=== PATIENT | female | born 1935 | race African-American/Black ===

== ENCOUNTER 2021-09-22 11:09 | Inpatient (IN) | payer BC, OTHER ==
[~2021-09-22] VITALS: Ht 167.6 cm; Wt 79.0 kg
[2021-09-22 12:29] LABS: BASOPHILS % 0.6 % (0.0-2.0); EOSINOPHILS % 0.1 % (0.0-5.0); HEMATOCRIT. 46.8 % (36.0-48.0); HEMOGLOBIN. 15.6 g/dL (12.0-16.0); LYMPHOCYTES % 23.1 % (20.0-50.0); MEAN CORPUSCULAR HEMOGLOBIN 28.8 pg (28.0-32.0); MEAN CORPUSCULAR VOLUME 86.2 fL (81.0-99.0); MEAN PLATELET VOLUME 8.8 fl (7.4-10.4); MONOCYTES % 9.2 % (2.0-8.0); PLATELET 246 x1000/uL (130-400); RED BLOOD CELL COUNT 5.43 mill/uL (4.2-5.4); RED CELL DISTRIBUTION WIDTH 13.4 % (11.6-14.6)
[2021-09-22 12:36] LABS: CHLORIDE 98 mEq/L (98-107)
[2021-09-22 12:57] LABS: CLARITY URINE CLOUDY (CLEAR); COLOR URINE YELLOW (YELLOW); KETONES URINE TRACE (NEGATIVE); LEUKOCYTE ESTERASE URINE NEGATIVE (NEGATIVE); NITRITE URINE NEGATIVE (NEGATIVE); OCCULT BLOOD URINE NEGATIVE (NEGATIVE); PROTEIN URINE 3+ (NEGATIVE); SPECIFIC GRAVITY URINE 1.026 (1.005-1.030)
[2021-09-22] MEDS ORDERED: SODIUM CHLORIDE 0.9% 500 ML IV ONE (13:30)
[2021-09-22] MEDS ORDERED: ONDANSETRON HCL 4MG/2ML INJ IV PRN (22:15)
[2021-09-22] MEDS ORDERED: DIPHENHYDRAMINE 50MG/ML VIAL IV PRN (22:15)
[2021-09-22] MEDS ORDERED: ACETAMINOPHEN 325MG TABLET PO PRN ×2 (22:15)
[2021-09-22] MEDS ORDERED: DEXTROSE 50% WATER 50ML SYRINGE IV PRN (22:15)
[2021-09-22] MEDS: SODIUM CHLORIDE 0.9% 1,000 ML IV SCH (22:35)
[2021-09-23 04:38] LABS: BASOPHILS % 0.8 % (0.0-2.0); HEMATOCRIT. 42.9 % (36.0-48.0); HEMOGLOBIN. 14.3 g/dL (12.0-16.0); LYMPHOCYTES % 16.2 % (20.0-50.0); MEAN CORPUSCULAR HEMOGLOBIN 28.8 pg (28.0-32.0); MEAN CORPUSCULAR VOLUME 86.5 fL (81.0-99.0); MEAN PLATELET VOLUME 8.5 fl (7.4-10.4); MONOCYTES % 11.2 % (2.0-8.0); NEUTROPHILS % 71.8 % (40.0-76.0); PLATELET 210 x1000/uL (130-400); RED BLOOD CELL COUNT 4.96 mill/uL (4.2-5.4); RED CELL DISTRIBUTION WIDTH 13.3 % (11.6-14.6)
[2021-09-23 05:05] LABS: CHLORIDE 107 mEq/L (98-107)
[2021-09-23] MEDS: BLOOD SUGAR DIAGNOSTIC STRIP TEST SCH ×4 (06:30→21:50)
[2021-09-23] MEDS: INSULIN LISPRO 100 UNITS/ML SUBCUT SCH ×4 (07:00→21:00)
[2021-09-23] MEDS: ENOXAPARIN 40MG/0.4ML SYR SUBCUT SCH (09:00)
[2021-09-23] MEDS: SODIUM CHLORIDE 0.9% 1,000 ML IV SCH (12:47)
[2021-09-24] MEDS: SODIUM CHLORIDE 0.9% 1,000 ML IV SCH ×2 (02:01→14:36)
[2021-09-24] MEDS: INSULIN LISPRO 100 UNITS/ML SUBCUT SCH ×4 (07:00→22:47)
[2021-09-24] MEDS: BLOOD SUGAR DIAGNOSTIC STRIP TEST SCH ×4 (07:50→22:47)
[2021-09-24] MEDS: ENOXAPARIN 40MG/0.4ML SYR SUBCUT SCH (09:17)
[2021-09-25] MEDS: SODIUM CHLORIDE 0.9% 1,000 ML IV SCH ×2 (03:52→20:06)
[2021-09-25 06:36] VITALS: BP 137/55
[2021-09-25] MEDS: BLOOD SUGAR DIAGNOSTIC STRIP TEST SCH ×4 (07:40→21:02)
[2021-09-25 08:00] VITALS: BP 126/54
[2021-09-25] MEDS: INSULIN LISPRO 100 UNITS/ML SUBCUT SCH ×4 (08:10→21:00)
[2021-09-25] MEDS: ENOXAPARIN 40MG/0.4ML SYR SUBCUT SCH (10:00)
[2021-09-25 16:00] VITALS: BP 120/74
[2021-09-25 20:00] VITALS: BP 118/65
[2021-09-26] VITALS: BP 117/60
[2021-09-26 04:00] VITALS: BP 118/76
[2021-09-26] MEDS: SODIUM CHLORIDE 0.9% 1,000 ML IV SCH ×2 (06:03→18:46)
[2021-09-26 08:00] VITALS: BP 129/86
[2021-09-26] MEDS: BLOOD SUGAR DIAGNOSTIC STRIP TEST SCH ×4 (08:09→21:19)
[2021-09-26] MEDS: INSULIN LISPRO 100 UNITS/ML SUBCUT SCH ×4 (08:10→21:00)
[2021-09-26] MEDS: ENOXAPARIN 40MG/0.4ML SYR SUBCUT SCH (08:29)
[2021-09-26 12:00] VITALS: BP 116/62
[2021-09-26 16:00] VITALS: BP 150/64
[2021-09-26 20:00] VITALS: BP 124/73
[2021-09-27 00:22] VITALS: BP 133/78
[2021-09-27 04:00] VITALS: BP 137/76
[2021-09-27] MEDS: BLOOD SUGAR DIAGNOSTIC STRIP TEST SCH ×4 (07:40→21:46)
[2021-09-27 08:00] VITALS: BP 174/96
[2021-09-27] MEDS: INSULIN LISPRO 100 UNITS/ML SUBCUT SCH ×4 (08:10→21:00)
[2021-09-27] MEDS: ENOXAPARIN 40MG/0.4ML SYR SUBCUT SCH (09:42)
[2021-09-27] MEDS: SODIUM CHLORIDE 0.9% 1,000 ML IV SCH ×2 (09:44→21:47)
[2021-09-27 12:00] VITALS: BP 142/98
[2021-09-27 16:00] VITALS: BP 146/75
[2021-09-27 20:00] VITALS: BP 112/83
[2021-09-28] VITALS: BP 140/69
[2021-09-28 04:00] VITALS: BP 156/78
[2021-09-28] MEDS: INSULIN LISPRO 100 UNITS/ML SUBCUT SCH ×4 (07:04→21:00)
[2021-09-28] MEDS: BLOOD SUGAR DIAGNOSTIC STRIP TEST SCH ×4 (07:04→21:06)
[2021-09-28 08:00] VITALS: BP 115/64
[2021-09-28] MEDS: ENOXAPARIN 40MG/0.4ML SYR SUBCUT SCH (08:54)
[2021-09-28 12:00] VITALS: BP 149/65
[2021-09-28] MEDS: SODIUM CHLORIDE 0.9% 1,000 ML IV SCH (13:59)
[2021-09-28 17:05] VITALS: BP 114/72
[2021-09-28 20:00] VITALS: BP 144/80
[2021-09-29] VITALS: BP 113/71
[2021-09-29] MEDS: SODIUM CHLORIDE 0.9% 1,000 ML IV SCH ×2 (02:19→16:51)
[2021-09-29 04:00] VITALS: BP 115/68
[2021-09-29] MEDS: BLOOD SUGAR DIAGNOSTIC STRIP TEST SCH ×4 (07:40→20:20)
[2021-09-29 08:00] VITALS: BP 144/97
[2021-09-29] MEDS: INSULIN LISPRO 100 UNITS/ML SUBCUT SCH ×4 (08:10→20:28)
[2021-09-29] MEDS: ENOXAPARIN 40MG/0.4ML SYR SUBCUT SCH (08:55)
[2021-09-29 12:00] VITALS: BP 103/64
[2021-09-29 16:00] VITALS: BP 101/74
[2021-09-29 20:00] VITALS: BP 134/65
[2021-09-30] VITALS (7 sets, daily range): BP systolic 98–164; BP diastolic 64–94
[2021-09-30] MEDS: SODIUM CHLORIDE 0.9% 1,000 ML IV SCH (04:51)
[2021-09-30] MEDS: BLOOD SUGAR DIAGNOSTIC STRIP TEST SCH ×4 (07:16→21:02)
[2021-09-30] MEDS: INSULIN LISPRO 100 UNITS/ML SUBCUT SCH ×4 (07:41→21:00)
[2021-09-30] MEDS: ENOXAPARIN 40MG/0.4ML SYR SUBCUT SCH ×3 (09:00→10:36)
[2021-09-30] MEDS: CLONIDINE 0.1MG TABLET PO PRN (13:52)
[2021-10-01 00:41] VITALS: BP 129/77
[2021-10-01 04:00] VITALS: BP 131/74
[2021-10-01] MEDS: BLOOD SUGAR DIAGNOSTIC STRIP TEST SCH (06:34)
[2021-10-01 08:00] VITALS: BP 171/98
[2021-10-01] MEDS: INSULIN LISPRO 100 UNITS/ML SUBCUT SCH (08:10)
[2021-10-01] MEDS: CLONIDINE 0.1MG TABLET PO PRN (09:10)
[2021-10-01 12:00] VITALS: BP 130/71
[2021-10-01 16:00] VITALS: BP 131/68
[2021-10-01 20:00] VITALS: BP 148/74
[2021-10-02] VITALS: BP 138/82
[2021-10-02 04:00] VITALS: BP 140/89
[2021-10-02 08:00] VITALS: BP 190/89
[2021-10-02 09:31] LABS: CHLORIDE 112 mEq/L (98-107)
[2021-10-02 10:02] LABS: BASOPHILS % 0.9 % (0.0-2.0); EOSINOPHILS % 1.3 % (0.0-5.0); HEMOGLOBIN. 12.5 g/dL (12.0-16.0); MEAN CORPUSCULAR HEMOGLOBIN 28.3 pg (28.0-32.0); MEAN CORPUSCULAR VOLUME 85.9 fL (81.0-99.0); MONOCYTES % 9.1 % (2.0-8.0); NEUTROPHILS % 69.7 % (40.0-76.0); RED BLOOD CELL COUNT 4.42 mill/uL (4.2-5.4); RED CELL DISTRIBUTION WIDTH 13.2 % (11.6-14.6)
[2021-10-02] MEDS: ENOXAPARIN 40MG/0.4ML SYR SUBCUT SCH (10:10)
[2021-10-02] MEDS: CLONIDINE 0.1MG TABLET PO PRN (11:38)
[2021-10-02 12:00] VITALS: BP 166/94
[2021-10-02 16:00] VITALS: BP 99/51
[2021-10-02 20:00] VITALS: BP 105/59
[2021-10-02] MEDS ORDERED: POTASSIUM CHLORIDE 20MEQ TABLET SR PO NR (21:00)
[2021-10-03 00:05] VITALS: BP 99/65
[2021-10-03 04:00] VITALS: BP 125/69
[2021-10-03 08:00] VITALS: BP 126/71
[2021-10-03] MEDS: ENOXAPARIN 40MG/0.4ML SYR SUBCUT SCH (08:10)
[2021-10-03 13:00] VITALS: BP 137/69
[2021-10-03 15:49] VITALS: BP 157/73
[2021-10-03 20:00] VITALS: BP 159/81
[2021-10-04] VITALS: BP 158/93
[2021-10-04 04:00] VITALS: BP 153/87
[2021-10-04 08:00] VITALS: BP 170/90
[2021-10-04] MEDS ORDERED: POTASSIUM CHLORIDE 20MEQ/PACKET PO NR (08:45)
[2021-10-04] MEDS: CLONIDINE 0.1MG TABLET PO PRN ×2 (09:21→21:00)
[2021-10-04] MEDS: ENOXAPARIN 40MG/0.4ML SYR SUBCUT SCH (09:23)
[2021-10-04] MEDS: CLONIDINE HCL 0.2MG/24HR PATCH TD SCH (11:00)
[2021-10-04 12:00] VITALS: BP 99/63
[2021-10-04 15:29] VITALS: BP 113/53
[2021-10-04] MEDS ORDERED: ZINC OXIDE 20% OINT 30GM TOP PRN (18:00)
[2021-10-04 20:00] VITALS: BP 152/96
[2021-10-05] VITALS: BP 142/95
[2021-10-05 04:00] VITALS: BP 138/93
[2021-10-05 07:50] LABS: BASOPHILS % 0.7 % (0.0-2.0); EOSINOPHILS % 0.8 % (0.0-5.0); HEMATOCRIT. 34.4 % (36.0-48.0); HEMOGLOBIN. 11.6 g/dL (12.0-16.0); LYMPHOCYTES % 13.5 % (20.0-50.0); MEAN CORPUSCULAR VOLUME 85.7 fL (81.0-99.0); MONOCYTES % 11.6 % (2.0-8.0); NEUTROPHILS % 73.4 % (40.0-76.0); PLATELET 433 x1000/uL (130-400); RED BLOOD CELL COUNT 4.01 mill/uL (4.2-5.4); RED CELL DISTRIBUTION WIDTH 13.3 % (11.6-14.6)
[2021-10-05 08:00] VITALS: BP 114/93
[2021-10-05] MEDS: ENOXAPARIN 40MG/0.4ML SYR SUBCUT SCH (09:07)
[2021-10-05 12:00] VITALS: BP 116/95
[2021-10-05 16:00] VITALS: BP 131/70
[2021-10-05 20:00] VITALS: BP 134/69
[2021-10-06] VITALS: BP 147/88
[2021-10-06 04:00] VITALS: BP 157/88
[2021-10-06 08:00] VITALS: BP 145/85
[2021-10-06] MEDS: ENOXAPARIN 40MG/0.4ML SYR SUBCUT SCH (08:55)
[2021-10-06 12:00] VITALS: BP 140/89
[2021-10-06 16:00] VITALS: BP 127/79
[2021-10-06 20:00] VITALS: BP 140/68
[2021-10-07] VITALS: BP 151/79
[2021-10-07 04:00] VITALS: BP 160/86
[2021-10-07] MEDS: CLONIDINE 0.1MG TABLET PO PRN (06:35)
[2021-10-07 08:00] VITALS: BP 131/82
[2021-10-07] MEDS: ENOXAPARIN 40MG/0.4ML SYR SUBCUT SCH (10:12)
[2021-10-07 12:00] VITALS: BP 117/60
[2021-10-07 16:00] VITALS: BP 111/69
[2021-10-07 20:00] VITALS: BP 101/57
[2021-10-08] VITALS: BP 103/59
[2021-10-08 04:00] VITALS: BP 99/65
[2021-10-08 08:00] VITALS: BP 126/79
[2021-10-08] MEDS: ENOXAPARIN 40MG/0.4ML SYR SUBCUT SCH (08:39)
[2021-10-08 12:00] VITALS: BP 164/79
[2021-10-08 16:00] VITALS: BP 108/58
[2021-10-08 20:00] VITALS: BP 128/87
[2021-10-09] VITALS: BP 131/76
[2021-10-09 04:00] VITALS: BP 110/69
[2021-10-09 08:00] VITALS: BP 121/77
[2021-10-09] MEDS: ENOXAPARIN 40MG/0.4ML SYR SUBCUT SCH (09:09)
[2021-10-09 12:00] VITALS: BP 138/79
[2021-10-09 16:00] VITALS: BP 121/99
[2021-10-09 20:00] VITALS: BP 135/76
[2021-10-10] VITALS: BP 138/79
[2021-10-10 04:00] VITALS: BP 121/87
[2021-10-10 08:00] VITALS: BP 141/116
[2021-10-10] MEDS: ENOXAPARIN 40MG/0.4ML SYR SUBCUT SCH (08:33)
[2021-10-10 12:00] VITALS: BP 104/65
[2021-10-10 16:00] VITALS: BP 107/91
[2021-10-10 20:00] VITALS: BP 138/83
[2021-10-11] VITALS: BP 110/76
[2021-10-11 04:00] VITALS: BP 124/82
[2021-10-11 08:00] VITALS: BP 142/96
[2021-10-11] MEDS ORDERED: MEGESTROL ACETATE 400 MG/10 ML UDC PO SCH (09:00)
[2021-10-11] MEDS: CLONIDINE HCL 0.2MG/24HR PATCH TD SCH (09:38)
[2021-10-11] MEDS: ENOXAPARIN 40MG/0.4ML SYR SUBCUT SCH (09:41)
[2021-10-11 12:00] VITALS: BP 154/79
[2021-10-11 16:00] VITALS: BP 131/68
[2021-10-11] MEDS: MEGESTROL ACETATE 400 MG/10 ML UDC PO SCH (17:18)
[2021-10-11 20:00] VITALS: BP 116/72
[2021-10-11 20:59] LABS: HEMATOCRIT 36.9 % (36.0-48.0); HEMOGLOBIN 12.2 g/dL (12.0-16.0); MEAN CORPUSCULAR HEMOGLOBIN 28.6 pg (28.0-32.0); MEAN CORPUSCULAR VOLUME 86.2 fL (81.0-99.0); PLATELET 512 x1000/uL (130-400); RED BLOOD CELL COUNT 4.28 mill/uL (4.2-5.4); RED CELL DISTRIBUTION WIDTH 13.4 % (11.6-14.6)
[2021-10-11 21:17] LABS: CHLORIDE 113 mEq/L (98-107)
[2021-10-12] VITALS: BP 123/75
[2021-10-12 04:00] VITALS: BP 130/60
[2021-10-12 08:00] VITALS: BP 112/55
[2021-10-12] MEDS: ENOXAPARIN 40MG/0.4ML SYR SUBCUT SCH (09:15)
[2021-10-12] MEDS: MEGESTROL ACETATE 400 MG/10 ML UDC PO SCH ×2 (09:15→17:00)
[2021-10-12 12:00] VITALS: BP 119/67
[2021-10-12 16:00] VITALS: BP 123/66
[2021-10-12 20:00] VITALS: BP 104/85
[2021-10-13 08:00] VITALS: BP 107/83
[2021-10-13] MEDS: ENOXAPARIN 40MG/0.4ML SYR SUBCUT SCH ×2 (09:00→09:13)
[2021-10-13] MEDS: MULTIVITAMINS,THER W-MINERALS TABLET PO SCH (09:12)
[2021-10-13] MEDS: MEGESTROL ACETATE 400 MG/10 ML UDC PO SCH ×2 (09:12→17:00)
[2021-10-13 12:00] VITALS: BP 120/81
[2021-10-13 16:00] VITALS: BP 125/68
[2021-10-14 08:00] VITALS: BP 133/50
[2021-10-14] MEDS: MULTIVITAMINS,THER W-MINERALS TABLET PO SCH ×2 (08:41→08:46)
[2021-10-14] MEDS: MEGESTROL ACETATE 400 MG/10 ML UDC PO SCH ×3 (08:41→18:31)
[2021-10-14] MEDS: ENOXAPARIN 40MG/0.4ML SYR SUBCUT SCH ×2 (08:42→08:47)
[2021-10-14 12:00] VITALS: BP 133/90
[2021-10-14 16:00] VITALS: BP 125/93
[2021-10-14 20:00] VITALS: BP 126/56
[2021-10-15] VITALS: BP 114/54
[2021-10-15 04:00] VITALS: BP 149/71
[2021-10-15 08:00] VITALS: BP 119/78
[2021-10-15] MEDS: MULTIVITAMINS,THER W-MINERALS TABLET PO SCH (09:18)
[2021-10-15] MEDS: MEGESTROL ACETATE 400 MG/10 ML UDC PO SCH ×2 (09:18→17:57)
[2021-10-15] MEDS: ENOXAPARIN 40MG/0.4ML SYR SUBCUT SCH (09:18)
[2021-10-15 12:00] VITALS: BP 110/72
[2021-10-15 16:00] VITALS: BP 105/80
[2021-10-15 19:57] VITALS: BP_SYST 121; BP_SYST 165; BP_DIAS 74; BP_DIAS 96
[2021-10-16] VITALS: BP 152/80
[2021-10-16 04:00] VITALS: BP 140/73
[2021-10-16 08:00] VITALS: BP 145/78
[2021-10-16] MEDS: ENOXAPARIN 40MG/0.4ML SYR SUBCUT SCH (09:57)
[2021-10-16] MEDS: MULTIVITAMINS,THER W-MINERALS TABLET PO SCH (09:57)
[2021-10-16] MEDS: MEGESTROL ACETATE 400 MG/10 ML UDC PO SCH ×2 (10:01→17:29)
[2021-10-16 12:00] VITALS: BP 115/70
[2021-10-16 16:18] VITALS: BP 123/69
[2021-10-16 22:00] VITALS: BP 120/55
[2021-10-17] VITALS: BP 125/65
[2021-10-17 04:00] VITALS: BP 129/57
[2021-10-17 08:00] VITALS: BP 142/70
[2021-10-17] MEDS: MEGESTROL ACETATE 400 MG/10 ML UDC PO SCH ×2 (08:56→17:00)
[2021-10-17] MEDS: MULTIVITAMINS,THER W-MINERALS TABLET PO SCH (08:57)
[2021-10-17] MEDS: ENOXAPARIN 40MG/0.4ML SYR SUBCUT SCH (08:57)
[2021-10-17 12:00] VITALS: BP 115/70
[2021-10-17 16:00] VITALS: BP 138/63
[2021-10-17 20:00] VITALS: BP 106/82
[2021-10-18] VITALS: BP 140/74
[2021-10-18 04:00] VITALS: BP 128/84
[2021-10-18 08:00] VITALS: BP 112/86
[2021-10-18] MEDS: MEGESTROL ACETATE 400 MG/10 ML UDC PO SCH ×2 (09:34→16:44)
[2021-10-18] MEDS: CLONIDINE HCL 0.2MG/24HR PATCH TD SCH (09:34)
[2021-10-18] MEDS: MULTIVITAMINS,THER W-MINERALS TABLET PO SCH (09:34)
[2021-10-18] MEDS: ENOXAPARIN 40MG/0.4ML SYR SUBCUT SCH (09:35)
[2021-10-18 12:00] VITALS: BP 140/90
[2021-10-18 16:00] VITALS: BP 110/88
[2021-10-18 20:00] VITALS: BP 122/68
[2021-10-19] VITALS: BP 118/62
[2021-10-19 04:00] VITALS: BP 126/56
[2021-10-19 08:00] VITALS: BP 129/75
[2021-10-19] MEDS: ENOXAPARIN 40MG/0.4ML SYR SUBCUT SCH (09:00)
[2021-10-19] MEDS: MEGESTROL ACETATE 400 MG/10 ML UDC PO SCH ×2 (09:02→17:33)
[2021-10-19] MEDS: MULTIVITAMINS,THER W-MINERALS TABLET PO SCH (09:02)
[2021-10-19 12:00] VITALS: BP 178/97
[2021-10-19 16:00] VITALS: BP 115/78
[2021-10-19 20:00] VITALS: BP 136/82
[2021-10-20] VITALS: BP 132/82
[2021-10-20 04:00] VITALS: BP 128/80
[2021-10-20 08:00] VITALS: BP 133/87
[2021-10-20] MEDS: MEGESTROL ACETATE 400 MG/10 ML UDC PO SCH ×2 (09:00→16:13)
[2021-10-20] MEDS: ENOXAPARIN 40MG/0.4ML SYR SUBCUT SCH (09:00)
[2021-10-20] MEDS: MULTIVITAMINS,THER W-MINERALS TABLET PO SCH (09:00)
[2021-10-20 12:00] VITALS: BP 157/83
[2021-10-20 16:00] VITALS: BP 107/71
[2021-10-20 20:00] VITALS: BP 91/52
[2021-10-21] VITALS: BP 105/56
[2021-10-21 04:00] VITALS: BP 102/63
[2021-10-21 07:56] LABS: BASOPHILS % 1.3 % (0.0-2.0); EOSINOPHILS % 1.9 % (0.0-5.0); HEMATOCRIT. 35.7 % (36.0-48.0); HEMOGLOBIN. 11.6 g/dL (12.0-16.0); LYMPHOCYTES % 26.6 % (20.0-50.0); MEAN CORPUSCULAR HEMOGLOBIN 27.9 pg (28.0-32.0); MEAN CORPUSCULAR VOLUME 85.9 fL (81.0-99.0); MONOCYTES % 8.9 % (2.0-8.0); NEUTROPHILS % 61.3 % (40.0-76.0); RED BLOOD CELL COUNT 4.15 mill/uL (4.2-5.4); RED CELL DISTRIBUTION WIDTH 14.3 % (11.6-14.6)
[2021-10-21 08:00] VITALS: BP 119/65
[2021-10-21 08:08] LABS: CHLORIDE 109 mEq/L (98-107)
[2021-10-21 08:46] LABS: PLATELET 269 x1000/uL (130-400)
[2021-10-21] MEDS: ENOXAPARIN 40MG/0.4ML SYR SUBCUT SCH (09:00)
[2021-10-21] MEDS: MEGESTROL ACETATE 400 MG/10 ML UDC PO SCH ×2 (09:19→16:26)
[2021-10-21] MEDS: MULTIVITAMINS,THER W-MINERALS TABLET PO SCH (09:19)
[2021-10-21 12:00] VITALS: BP 130/72
[2021-10-21 16:00] VITALS: BP 111/51
[2021-10-21 20:00] VITALS: BP 127/80
[2021-10-21] MEDS ORDERED: CLONIDINE 0.1MG TABLET PO PRN (21:00)
[2021-10-21] MEDS ORDERED: DIPHENHYDRAMINE 50MG/ML VIAL IV PRN (21:00)
[2021-10-21] MEDS ORDERED: ACETAMINOPHEN 325MG TABLET PO PRN (21:00)
[2021-10-22] VITALS: BP 132/76
[2021-10-22 04:00] VITALS: BP 107/70
[2021-10-22 08:00] VITALS: BP 112/83
[2021-10-22] MEDS: ENOXAPARIN 40MG/0.4ML SYR SUBCUT SCH (08:33)
[2021-10-22] MEDS: MEGESTROL ACETATE 400 MG/10 ML UDC PO SCH ×2 (08:34→17:00)
[2021-10-22] MEDS: MULTIVITAMINS,THER W-MINERALS TABLET PO SCH (08:40)
[2021-10-22 12:00] VITALS: BP 104/56
[2021-10-22 16:00] VITALS: BP 120/72
[2021-10-22 20:00] VITALS: BP 118/61
[2021-10-22] MEDS ORDERED: DIPHENHYDRAMINE 50MG/ML VIAL IV PRN (22:15)
[2021-10-23] VITALS: BP 104/54
[2021-10-23 04:00] VITALS: BP 123/53
[2021-10-23 07:44] VITALS: BP 131/68
[2021-10-23] MEDS: MULTIVITAMINS,THER W-MINERALS TABLET PO SCH (09:05)
[2021-10-23] MEDS: MEGESTROL ACETATE 400 MG/10 ML UDC PO SCH ×2 (09:05→18:28)
[2021-10-23] MEDS: ENOXAPARIN 40MG/0.4ML SYR SUBCUT SCH (09:05)
[2021-10-23 12:00] VITALS: BP 97/53
[2021-10-23 16:00] VITALS: BP 96/51
[2021-10-23 20:00] VITALS: BP 127/61
[2021-10-24] VITALS: BP 110/84
[2021-10-24 04:00] VITALS: BP 118/62
[2021-10-24 08:00] VITALS: BP 97/41
[2021-10-24] MEDS: MEGESTROL ACETATE 400 MG/10 ML UDC PO SCH ×2 (08:53→17:19)
[2021-10-24] MEDS: MULTIVITAMINS,THER W-MINERALS TABLET PO SCH (08:53)
[2021-10-24] MEDS: ENOXAPARIN 40MG/0.4ML SYR SUBCUT SCH (08:54)
[2021-10-24 12:00] VITALS: BP 133/62
[2021-10-24 16:00] VITALS: BP 146/99
[2021-10-24 20:00] VITALS: BP 135/83
[2021-10-25] VITALS: BP 90/58
[2021-10-25 04:00] VITALS: BP 117/67
[2021-10-25 08:00] VITALS: BP 107/59
[2021-10-25] MEDS: MULTIVITAMINS,THER W-MINERALS TABLET PO SCH (09:36)
[2021-10-25] MEDS: MEGESTROL ACETATE 400 MG/10 ML UDC PO SCH ×2 (09:36→17:53)
[2021-10-25] MEDS: ENOXAPARIN 40MG/0.4ML SYR SUBCUT SCH (09:36)
[2021-10-25] MEDS: CLONIDINE HCL 0.2MG/24HR PATCH TD SCH (09:36)
[2021-10-25 12:00] VITALS: BP 110/60
[2021-10-25 16:00] VITALS: BP 98/59
[2021-10-25 20:00] VITALS: BP 105/67
[2021-10-26] VITALS: BP 119/68
[2021-10-26 04:00] VITALS: BP 107/66
[2021-10-26 08:00] VITALS: BP 116/58
[2021-10-26] MEDS: MEGESTROL ACETATE 400 MG/10 ML UDC PO SCH ×2 (09:29→17:38)
[2021-10-26] MEDS: ENOXAPARIN 40MG/0.4ML SYR SUBCUT SCH (09:29)
[2021-10-26] MEDS: MULTIVITAMINS,THER W-MINERALS TABLET PO SCH (09:29)
[2021-10-26 12:00] VITALS: BP 116/58
[2021-10-26 16:00] VITALS: BP 115/51
[2021-10-26 20:00] VITALS: BP 97/49
[2021-10-27] VITALS: BP 116/68
[2021-10-27 04:00] VITALS: BP 100/59
[2021-10-27 08:00] VITALS: BP 98/56
[2021-10-27] MEDS: MULTIVITAMINS,THER W-MINERALS TABLET PO SCH (08:18)
[2021-10-27] MEDS: MEGESTROL ACETATE 400 MG/10 ML UDC PO SCH ×2 (08:18→17:12)
[2021-10-27] MEDS: ENOXAPARIN 40MG/0.4ML SYR SUBCUT SCH (08:19)
[2021-10-27 12:00] VITALS: BP 103/52
[2021-10-27 16:00] VITALS: BP 137/49
[2021-10-27 20:00] VITALS: BP 122/58
[2021-10-28] VITALS: BP 130/52
[2021-10-28 04:00] VITALS: BP 126/76
[2021-10-28 08:00] VITALS: BP 138/57
[2021-10-28] MEDS: ENOXAPARIN 40MG/0.4ML SYR SUBCUT SCH (09:12)
[2021-10-28] MEDS: MEGESTROL ACETATE 400 MG/10 ML UDC PO SCH ×2 (09:12→16:42)
[2021-10-28] MEDS: MULTIVITAMINS,THER W-MINERALS TABLET PO SCH (09:12)
[2021-10-28 12:00] VITALS: BP 135/57
[2021-10-28 16:00] VITALS: BP 139/57
[2021-10-28 20:00] VITALS: BP 123/68
[2021-10-29] VITALS: BP 128/72
[2021-10-29 04:00] VITALS: BP 102/66
[2021-10-29 08:00] VITALS: BP 99/44
[2021-10-29] MEDS: MULTIVITAMINS,THER W-MINERALS TABLET PO SCH (08:57)
[2021-10-29] MEDS: MEGESTROL ACETATE 400 MG/10 ML UDC PO SCH ×2 (08:57→17:58)
[2021-10-29] MEDS: ENOXAPARIN 40MG/0.4ML SYR SUBCUT SCH (09:00)
[2021-10-29 12:00] VITALS: BP 103/49
[2021-10-29 16:00] VITALS: BP 109/59
[2021-10-29 20:00] VITALS: BP 111/76
[2021-10-30] VITALS: BP 108/55
[2021-10-30 04:00] VITALS: BP 121/65
[2021-10-30 06:41] LABS: HEMATOCRIT 37.9 % (36.0-48.0); HEMOGLOBIN 12.4 g/dL (12.0-16.0); MEAN CORPUSCULAR HEMOGLOBIN 28.1 pg (28.0-32.0); MEAN CORPUSCULAR VOLUME 85.9 fL (81.0-99.0); PLATELET 259 x1000/uL (130-400); RED BLOOD CELL COUNT 4.41 mill/uL (4.2-5.4); RED CELL DISTRIBUTION WIDTH 15.1 % (11.6-14.6)
[2021-10-30 07:11] LABS: CHLORIDE 105 mEq/L (98-107)
[2021-10-30 08:00] VITALS: BP 94/69
[2021-10-30] MEDS: MEGESTROL ACETATE 400 MG/10 ML UDC PO SCH ×2 (08:26→19:13)
[2021-10-30] MEDS: ENOXAPARIN 40MG/0.4ML SYR SUBCUT SCH (08:26)
[2021-10-30] MEDS: MULTIVITAMINS,THER W-MINERALS TABLET PO SCH (08:26)
[2021-10-30 12:00] VITALS: BP 116/51
[2021-10-30 16:00] VITALS: BP 142/70
[2021-10-30 20:00] VITALS: BP 119/92
[2021-10-31] VITALS: BP 121/90
[2021-10-31 04:00] VITALS: BP 123/71
[2021-10-31 08:00] VITALS: BP 103/41
[2021-10-31] MEDS: ENOXAPARIN 40MG/0.4ML SYR SUBCUT SCH (09:03)
[2021-10-31] MEDS: MEGESTROL ACETATE 400 MG/10 ML UDC PO SCH ×2 (09:03→17:51)
[2021-10-31] MEDS: MULTIVITAMINS,THER W-MINERALS TABLET PO SCH (09:04)
[2021-10-31 12:00] VITALS: BP 106/52
[2021-10-31 16:00] VITALS: BP 109/47
[2021-10-31 20:00] VITALS: BP 103/51
[2021-11-01] VITALS: BP 111/53
[2021-11-01 04:00] VITALS: BP 101/65
[2021-11-01 08:00] VITALS: BP 104/46
[2021-11-01] MEDS: MULTIVITAMINS,THER W-MINERALS TABLET PO SCH (08:48)
[2021-11-01] MEDS: ENOXAPARIN 40MG/0.4ML SYR SUBCUT SCH (08:48)
[2021-11-01] MEDS: MEGESTROL ACETATE 400 MG/10 ML UDC PO SCH ×2 (08:48→17:32)
[2021-11-01] MEDS: CLONIDINE HCL 0.2MG/24HR PATCH TD SCH (08:49)
[2021-11-01 12:00] VITALS: BP 125/58
[2021-11-01 16:00] VITALS: BP 110/91
[2021-11-01 20:00] VITALS: BP 98/38
[2021-11-02] VITALS: BP 96/35
[2021-11-02 04:00] VITALS: BP 122/49
[2021-11-02 08:00] VITALS: BP 126/88
[2021-11-02] MEDS: MULTIVITAMINS,THER W-MINERALS TABLET PO SCH (09:24)
[2021-11-02] MEDS: MEGESTROL ACETATE 400 MG/10 ML UDC PO SCH ×2 (09:24→17:51)
[2021-11-02] MEDS: ENOXAPARIN 40MG/0.4ML SYR SUBCUT SCH (09:25)
[2021-11-02 12:00] VITALS: BP 128/86
[2021-11-02 16:00] VITALS: BP 110/60
[2021-11-02 20:00] VITALS: BP 117/58
[2021-11-03] VITALS: BP 115/60
[2021-11-03 04:00] VITALS: BP 120/62
[2021-11-03 08:00] VITALS: BP 123/81
[2021-11-03] MEDS: MEGESTROL ACETATE 400 MG/10 ML UDC PO SCH ×2 (09:00→16:29)
[2021-11-03] MEDS: MULTIVITAMINS,THER W-MINERALS TABLET PO SCH ×2 (10:53→11:06)
[2021-11-03] MEDS: ENOXAPARIN 40MG/0.4ML SYR SUBCUT SCH ×2 (10:54→11:06)
[2021-11-03 12:00] VITALS: BP 114/74
[2021-11-03 16:00] VITALS: BP 107/59
[2021-11-03 20:00] VITALS: BP 108/72
[2021-11-04] VITALS: BP 122/75
[2021-11-04 04:00] VITALS: BP 109/61
[2021-11-04 08:00] VITALS: BP 99/54
[2021-11-04] MEDS: MULTIVITAMINS,THER W-MINERALS TABLET PO SCH (08:49)
[2021-11-04] MEDS: ENOXAPARIN 40MG/0.4ML SYR SUBCUT SCH (08:50)
[2021-11-04] MEDS: MEGESTROL ACETATE 400 MG/10 ML UDC PO SCH ×3 (09:00→18:02)
[2021-11-04 12:00] VITALS: BP 114/64
[2021-11-04 16:00] VITALS: BP 122/51
[2021-11-05 05:13] VITALS: BP 94/53
[2021-11-05 08:00] VITALS: BP 117/51
[2021-11-05] MEDS: MEGESTROL ACETATE 400 MG/10 ML UDC PO SCH ×2 (09:22→17:45)
[2021-11-05] MEDS: MULTIVITAMINS,THER W-MINERALS TABLET PO SCH (09:22)
[2021-11-05] MEDS: ENOXAPARIN 40MG/0.4ML SYR SUBCUT SCH (09:22)
[2021-11-05 10:20] LABS: CHLORIDE 104 mEq/L (98-107)
[2021-11-05 10:25] LABS: BASOPHILS % 0.9 % (0.0-2.0); EOSINOPHILS % 2.6 % (0.0-5.0); HEMATOCRIT. 33.5 % (36.0-48.0); HEMOGLOBIN. 11.7 g/dL (12.0-16.0); LYMPHOCYTES % 25.3 % (20.0-50.0); MEAN CORPUSCULAR VOLUME 85.8 fL (81.0-99.0); MONOCYTES % 10.7 % (2.0-8.0); NEUTROPHILS % 60.5 % (40.0-76.0); PLATELET 349 x1000/uL (130-400); RED CELL DISTRIBUTION WIDTH 15.3 % (11.6-14.6)
[2021-11-05 10:26] LABS: PHOSPHORUS 2.7 mg/dL (2.5-4.9)
[2021-11-05 12:00] VITALS: BP 128/56
[2021-11-05 16:00] VITALS: BP 108/54
[2021-11-05 20:00] VITALS: BP 121/49
[2021-11-06] VITALS: BP 114/48
[2021-11-06 04:00] VITALS: BP 124/56
[2021-11-06 08:00] VITALS: BP 113/58
[2021-11-06] MEDS: MEGESTROL ACETATE 400 MG/10 ML UDC PO SCH ×2 (09:40→17:18)
[2021-11-06] MEDS: MULTIVITAMINS,THER W-MINERALS TABLET PO SCH (09:40)
[2021-11-06] MEDS: ENOXAPARIN 40MG/0.4ML SYR SUBCUT SCH (09:41)
[2021-11-06 12:00] VITALS: BP 129/52
[2021-11-06 16:00] VITALS: BP 118/61
[2021-11-06 20:00] VITALS: BP 121/62
[2021-11-07] VITALS: BP 145/58
[2021-11-07 04:00] VITALS: BP 110/67
[2021-11-07 08:00] VITALS: BP 99/59
[2021-11-07] MEDS: MULTIVITAMINS,THER W-MINERALS TABLET PO SCH (09:06)
[2021-11-07] MEDS: MEGESTROL ACETATE 400 MG/10 ML UDC PO SCH ×2 (09:06→17:41)
[2021-11-07] MEDS: ENOXAPARIN 40MG/0.4ML SYR SUBCUT SCH (09:07)
[2021-11-07 12:00] VITALS: BP 110/60
[2021-11-07 16:00] VITALS: BP 102/66
[2021-11-07 20:00] VITALS: BP 129/86
[2021-11-08] VITALS: BP 117/73
[2021-11-08 04:00] VITALS: BP 128/90
[2021-11-08 08:00] VITALS: BP 111/65
[2021-11-08] MEDS: MEGESTROL ACETATE 400 MG/10 ML UDC PO SCH ×2 (08:43→17:34)
[2021-11-08] MEDS: MULTIVITAMINS,THER W-MINERALS TABLET PO SCH (08:43)
[2021-11-08] MEDS: ENOXAPARIN 40MG/0.4ML SYR SUBCUT SCH (08:44)
[2021-11-08 12:00] VITALS: BP 107/65
[2021-11-08 16:00] VITALS: BP 128/61
[2021-11-08 20:00] VITALS: BP 126/79
[2021-11-09] VITALS: BP 131/73
[2021-11-09 04:00] VITALS: BP 129/78
[2021-11-09 08:00] VITALS: BP 101/40
[2021-11-09] MEDS: ENOXAPARIN 40MG/0.4ML SYR SUBCUT SCH (09:28)
[2021-11-09] MEDS: MULTIVITAMINS,THER W-MINERALS TABLET PO SCH (09:28)
[2021-11-09 12:00] VITALS: BP 106/46
[2021-11-09 16:00] VITALS: BP 111/64
[2021-11-09 20:00] VITALS: BP 142/68
[2021-11-10] VITALS: BP 104/58
[2021-11-10 04:00] VITALS: BP 135/68
[2021-11-10 08:00] VITALS: BP 123/81
[2021-11-10] MEDS: MULTIVITAMINS,THER W-MINERALS TABLET PO SCH (08:34)
[2021-11-10] MEDS: ENOXAPARIN 40MG/0.4ML SYR SUBCUT SCH (08:35)
[2021-11-10 12:00] VITALS: BP 135/70
[2021-11-10 20:00] VITALS: BP 90/68
[2021-11-11] VITALS: BP 115/80
[2021-11-11 04:00] VITALS: BP 115/75
[2021-11-11 08:00] VITALS: BP 80/56
[2021-11-11] MEDS: ENOXAPARIN 40MG/0.4ML SYR SUBCUT SCH (08:49)
[2021-11-11 12:00] VITALS: BP 94/39
[2021-11-11 20:00] VITALS: BP 104/65
[2021-11-12] VITALS: BP 111/52
[2021-11-12 04:00] VITALS: BP 111/51
[2021-11-12 05:43] LABS: BASOPHILS % 1.1 % (0.0-2.0); EOSINOPHILS % 3.5 % (0.0-5.0); HEMATOCRIT. 39.6 % (36.0-48.0); HEMOGLOBIN. 13.2 g/dL (12.0-16.0); LYMPHOCYTES % 28.2 % (20.0-50.0); MEAN CORPUSCULAR HEMOGLOBIN 29.3 pg (28.0-32.0); MEAN CORPUSCULAR VOLUME 87.7 fL (81.0-99.0); MEAN PLATELET VOLUME 8.3 fl (7.4-10.4); MONOCYTES % 14.4 % (2.0-8.0); NEUTROPHILS % 52.8 % (40.0-76.0); PLATELET 377 x1000/uL (130-400); RED BLOOD CELL COUNT 4.51 mill/uL (4.2-5.4); RED CELL DISTRIBUTION WIDTH 16.3 % (11.6-14.6)
[2021-11-12 08:00] VITALS: BP 105/54
[2021-11-12] MEDS: ENOXAPARIN 40MG/0.4ML SYR SUBCUT SCH (10:08)
[2021-11-12 12:00] VITALS: BP 110/51
[2021-11-12 16:27] VITALS: BP 118/60
[2021-11-12 20:00] VITALS: BP 135/78
[2021-11-13] VITALS: BP 128/76
[2021-11-13 04:00] VITALS: BP 132/82
[2021-11-13 08:00] VITALS: BP 104/68
[2021-11-13] MEDS: ENOXAPARIN 40MG/0.4ML SYR SUBCUT SCH (08:21)
[2021-11-13 12:00] VITALS: BP 124/52
[2021-11-13 16:00] VITALS: BP 136/64
[2021-11-13 20:00] VITALS: BP 131/82
[2021-11-14] VITALS: BP 143/89
[2021-11-14 04:00] VITALS: BP 112/61
[2021-11-14 08:00] VITALS: BP 108/54
[2021-11-14] MEDS: ENOXAPARIN 40MG/0.4ML SYR SUBCUT SCH (09:25)
[2021-11-14 12:00] VITALS: BP 111/79
[2021-11-14 16:00] VITALS: BP 111/51
[2021-11-14 20:00] VITALS: BP 143/44
[2021-11-15] VITALS: BP 113/59
[2021-11-15 04:00] VITALS: BP 124/54
[2021-11-15 08:00] VITALS: BP 114/70
[2021-11-15 08:25] LABS: CHLORIDE 103 mEq/L (98-107)
[2021-11-15] MEDS: ENOXAPARIN 40MG/0.4ML SYR SUBCUT SCH (08:28)
[2021-11-15 12:00] VITALS: BP 107/56
[2021-11-15 16:00] VITALS: BP 126/73
[2021-11-15 20:00] VITALS: BP 96/53
[2021-11-16] VITALS: BP 84/54
[2021-11-16 04:00] VITALS: BP 107/50
[2021-11-16 08:00] VITALS: BP 111/64
[2021-11-16] MEDS: ENOXAPARIN 40MG/0.4ML SYR SUBCUT SCH (08:23)
[2021-11-16 12:00] VITALS: BP 101/51
[2021-11-16 16:00] VITALS: BP 107/62
[2021-11-16 20:00] VITALS: BP_SYST 126; BP_SYST 147; BP_DIAS 40; BP_DIAS 66
[2021-11-17] VITALS: BP 147/66
[2021-11-17 04:00] VITALS: BP 145/55
[2021-11-17 08:10] VITALS: BP 143/72
[2021-11-17] MEDS: ENOXAPARIN 40MG/0.4ML SYR SUBCUT SCH (08:51)
[2021-11-17 12:00] VITALS: BP 100/78
[2021-11-17 16:00] VITALS: BP 129/54
[2021-11-17 20:00] VITALS: BP 114/64
[2021-11-18] VITALS: BP 109/71
[2021-11-18 04:00] VITALS: BP 140/84
[2021-11-18 08:00] VITALS: BP 114/60
[2021-11-18] MEDS: ENOXAPARIN 40MG/0.4ML SYR SUBCUT SCH (08:48)
[2021-11-18 12:00] VITALS: BP 106/50
[2021-11-18 16:00] VITALS: BP 120/72
[2021-11-18 20:00] VITALS: BP 111/69
[2021-11-19] VITALS: BP 125/65
[2021-11-19 04:00] VITALS: BP 137/54
[2021-11-19 08:00] VITALS: BP 114/58
[2021-11-19] MEDS: ENOXAPARIN 40MG/0.4ML SYR SUBCUT SCH (09:08)
[2021-11-19 12:00] VITALS: BP 115/52
[2021-11-19 16:00] VITALS: BP 118/53
[2021-11-20] VITALS: BP 132/64
[2021-11-20 04:00] VITALS: BP 105/84
[2021-11-20 08:00] VITALS: BP 111/70
[2021-11-20 09:05] LABS: BASOPHILS % 0.2 % (0.0-2.0); HEMATOCRIT. 33.8 % (36.0-48.0); HEMOGLOBIN. 11.8 g/dL (12.0-16.0); LYMPHOCYTES % 28.3 % (20.0-50.0); MEAN CORPUSCULAR VOLUME 86.3 fL (81.0-99.0); MEAN PLATELET VOLUME 8.5 fl (7.4-10.4); MONOCYTES % 12.1 % (2.0-8.0); NEUTROPHILS % 55.4 % (40.0-76.0); PLATELET 302 x1000/uL (130-400); RED BLOOD CELL COUNT 3.92 mill/uL (4.2-5.4); RED CELL DISTRIBUTION WIDTH 16.3 % (11.6-14.6)
[2021-11-20 09:08] LABS: CHLORIDE 106 mEq/L (98-107)
[2021-11-20] MEDS: ENOXAPARIN 40MG/0.4ML SYR SUBCUT SCH (09:29)
[2021-11-20 16:49] VITALS: BP 115/46
[2021-11-20] MEDS ORDERED: ACETAMINOPHEN 650MG/20.3ML UDC PO PRN (17:15)
== END 2021-11-20 18:05 | disposition hospice, inpatient (51) | DRG 178 ==
LOC: ER 11:18 → MICUSO 16:28 → EDBEDREQ 20:03 → 7WST 09-25 03:21 → 6EST 10-03 11:00
PROVIDERS: ADMIT Internal Medicine; ATTEND Internal Medicine
DX: U07.1 COVID-19 (principal); N17.9 Acute kidney failure, unspecified; E87.1 Hypo-osmolality and hyponatremia; E44.0 Moderate protein-calorie malnutrition; R62.7 Adult failure to thrive; E87.6 Hypokalemia; F03.90 Unspecified dementia, unspecified severity, without behavioral disturbance, psychotic disturbance, mood disturbance, and anxiety; I10 Essential (primary) hypertension; E11.9 Type 2 diabetes mellitus without complications; Z68.28 Body mass index [BMI] 28.0-28.9, adult; Z51.5 Encounter for palliative care; Z75.1 Person awaiting admission to adequate facility elsewhere; E86.0 Dehydration
CPT/HCPCS: 36415; 71045; 80048; 80053; 81003; 82140; 82962; 83036; 83605; 83735; 84100; 84443; 84484; 85025; 85027; 87426; 93005; 97110; 97162; 97166; 97530; 97535; 99285; A6261; C1893; J1650; J1815; J7040

== ENCOUNTER 2024-05-26 12:05 | Emergency (ER) | payer BC, OTHER ==
[2024-05-26 13:23] LABS: BASOPHILS % 1.2 % (0.0-2.0); EOSINOPHILS % 3.1 % (0.0-5.0); HEMATOCRIT. 41.1 % (36.0-48.0); HEMOGLOBIN. 13.3 g/dL (12.0-16.0); LYMPHOCYTES % 29.4 % (20.0-50.0); MEAN CORPUSCULAR HEMOGLOBIN 29.4 pg (28.0-32.0); MEAN CORPUSCULAR HGB CONC 32.4 g/dL (31.0-37.0); MEAN CORPUSCULAR VOLUME 90.7 fL (81.0-99.0); MEAN PLATELET VOLUME 9.3 fl (7.4-10.4); MONOCYTES % 9.8 % (2.0-8.0); NEUTROPHILS % 56.5 % (40.0-76.0); PLATELET 256 x1000/uL (130-400); RED BLOOD CELL COUNT 4.53 mill/uL (4.2-5.4); RED CELL DISTRIBUTION WIDTH 14.3 % (11.6-14.6); WHITE BLOOD COUNT 5.1 x1000/uL (4.5-11.0)
[2024-05-26 13:29] LABS: CHLORIDE 106 mEq/L (98-107); POTASSIUM 4.7 mEq/L (3.5-5.1); SODIUM 136 mEq/L (136-145)
[2024-05-26 13:30] LABS: CALCIUM 9.6 mg/dL (8.7-10.4); CARBON DIOXIDE 23 mEq/L (21-32)
[2024-05-26 13:35] LABS: CREATININE 1.2 mg/dL (0.6-1.0); GLUCOSE 104 mg/dL (70-105); UREA NITROGEN BLOOD 24 mg/dL (9-23)
[2024-05-26 13:36] LABS: TROPONIN I HIGH SENSITIVITY 8 ng/L (3.0-34)
[2024-05-26 13:38] LABS: INR 0.9; PROTHROMBIN TIME 10.4 sec (9.6-11.0)
[2024-05-26 20:09] VITALS: O2SAT 96
[2024-05-26 20:45] VITALS: BP 144/68; PULSE 60; RESP 16; TEMP 36.66960
== END 2024-05-26 20:47 | disposition home or self-care (01) ==
LOC: ER 12:29 → CANBEDREQ 18:32 → ER 20:47
DX: D17.21 Benign lipomatous neoplasm of skin and subcutaneous tissue of right arm (principal); E11.9 Type 2 diabetes mellitus without complications; I10 Essential (primary) hypertension; E78.00 Pure hypercholesterolemia, unspecified
CPT/HCPCS: 36415; 71045; 76881; 80048; 84484; 85025; 99285

== ENCOUNTER 2024-06-05 19:52 | Inpatient (IN) | payer BC, MEDICAID, MEDICARE ==
[~2024-06-05] VITALS: Ht 160 cm; Wt 66.5 kg
[2024-06-05 22:51] LABS: HEMATOCRIT 39.6 % (36.0-48.0); HEMOGLOBIN 12.9 g/dL (12.0-16.0); MEAN CORPUSCULAR HEMOGLOBIN 29.3 pg (28.0-32.0); MEAN CORPUSCULAR HGB CONC 32.7 g/dL (31.0-37.0); MEAN CORPUSCULAR VOLUME 89.6 fL (81.0-99.0); PLATELET 233 x1000/uL (130-400); RED BLOOD CELL COUNT 4.42 mill/uL (4.2-5.4); RED CELL DISTRIBUTION WIDTH 15.7 % (11.6-14.6); WHITE BLOOD COUNT 10.9 x1000/uL (4.5-11.0)
[2024-06-05 22:56] LABS: CHLORIDE 111 mEq/L (98-107); POTASSIUM 3.7 mEq/L (3.5-5.1); SODIUM 145 mEq/L (136-145)
[2024-06-05 22:57] LABS: CALCIUM 10.3 mg/dL (8.7-10.4); CARBON DIOXIDE 27 mEq/L (21-32)
[2024-06-05 23:02] LABS: CREATININE 1.1 mg/dL (0.6-1.0); GLUCOSE 136 mg/dL (70-105); TROPONIN I HIGH SENSITIVITY 11 ng/L (3.0-34); UREA NITROGEN BLOOD 43 mg/dL (9-23)
[2024-06-05 23:04] LABS: ALANINE AMINOTRANSFERASE 140 IU/L (10-49); ALBUMIN 3.9 g/dL (3.2-4.8); ASPARTATE AMINOTRANSFERASE 143 IU/L (<34); BILIRUBIN DIRECT 0.3 mg/dL (<=3.0); BILIRUBIN TOTAL 0.7 mg/dL (0.1-1.0); PHOSPHORUS 3.3 mg/dL (2.5-4.9); PROTEIN TOTAL 7.6 g/dL (6.0-8.3)
[2024-06-05 23:06] LABS: T4 FREE 1.63 ng/dL (0.89-1.76); THYROID STIMULATING HORMONE 0.12 uIU/mL (0.55-4.78)
[2024-06-06] MEDS: LACTATED RINGERS 1,000 ML IV SCH (03:46)
[2024-06-06 04:00] VITALS: BP 131/64; PULSE 82; RESP 19; TEMP 36.3918; O2SAT 95
[2024-06-06 05:14] VITALS: BP 131/64; PULSE 82; RESP 19; TEMP 36.418
[2024-06-06 08:00] VITALS: BP 120/66; PULSE 72; RESP 18; TEMP 36.50292; O2SAT 98
[2024-06-06 12:00] VITALS: BP 126/77; PULSE 81; RESP 18; TEMP 36.22512; O2SAT 98
[2024-06-06] MEDS ORDERED: DEXTL MT (12:11)
[2024-06-06 16:00] VITALS: BP 122/70; PULSE 76; RESP 19; TEMP 36.50292; O2SAT 99
[2024-06-06] MEDS ORDERED: ACETAMINOPHEN 325MG TABLET PO PRN ×2 (17:45)
[2024-06-06] MEDS ORDERED: ZOLPIDEM TARTRATE 5MG TABLET PO PRN (17:45)
[2024-06-06] MEDS: ENOXAPARIN 30MG/0.3ML SYR SUBCUT SCH (18:27)
[2024-06-06 20:00] VITALS: BP 114/62; PULSE 100; RESP 19; TEMP 36.3918; O2SAT 96
[2024-06-07] VITALS: BP 126/72; PULSE 105; RESP 19; TEMP 36.6696; O2SAT 95
[2024-06-07 04:00] VITALS: BP 113/68; PULSE 102; RESP 19; TEMP 36.61404; O2SAT 97
[2024-06-07 08:00] VITALS: BP 128/73; PULSE 105; RESP 19; TEMP 36.22512; O2SAT 97
[2024-06-07 12:00] VITALS: BP 135/73; PULSE 105; RESP 19; TEMP 36.33624; O2SAT 96
[2024-06-07 12:42] LABS: ALANINE AMINOTRANSFERASE 91 IU/L (10-49); ASPARTATE AMINOTRANSFERASE 57 IU/L (<34)
[2024-06-07 12:43] LABS: ALBUMIN 3.8 g/dL (3.2-4.8); BILIRUBIN DIRECT 0.6 mg/dL (<=3.0); BILIRUBIN TOTAL 1.3 mg/dL (0.1-1.0); PROTEIN TOTAL 7.5 g/dL (6.0-8.3)
[2024-06-07 16:00] VITALS: BP 132/73; PULSE 103; RESP 20; TEMP 36.22512; O2SAT 97
[2024-06-07] MEDS: DEXT 5%/0.45% NACL 1000ML 1,000 ML IV SCH (17:30)
[2024-06-08] VITALS: BP 109/70; PULSE 64; RESP 17; TEMP 37.00296; O2SAT 95
[2024-06-08 04:00] VITALS: BP 136/85; PULSE 77; RESP 16; TEMP 36.72516; O2SAT 97
[2024-06-08 08:00] VITALS: BP 128/78; PULSE 67; RESP 19; TEMP 36.3918; O2SAT 95
[2024-06-08 11:28] LABS: CHLORIDE 117 mEq/L (98-107); POTASSIUM 3.6 mEq/L (3.5-5.1); SODIUM 150 mEq/L (136-145)
[2024-06-08 11:29] LABS: CALCIUM 9.7 mg/dL (8.7-10.4); CARBON DIOXIDE 27 mEq/L (21-32)
[2024-06-08 11:34] LABS: GLUCOSE 221 mg/dL (70-105); UREA NITROGEN BLOOD 31 mg/dL (9-23)
[2024-06-08 12:00] VITALS: BP 123/56; PULSE 76; RESP 18; TEMP 36.6696; O2SAT 97
[2024-06-08 20:00] VITALS: BP 143/60; PULSE 101; RESP 19; TEMP 36.3918; O2SAT 95
[2024-06-09] VITALS: BP 117/51; PULSE 87; RESP 19; TEMP 36.3918; O2SAT 95
[2024-06-09 04:00] VITALS: BP 134/74; PULSE 100; RESP 19; TEMP 36.61404; O2SAT 95
[2024-06-09 08:00] VITALS: BP 138/57; PULSE 94; RESP 18; TEMP 36.33624; O2SAT 98
[2024-06-09 12:00] VITALS: BP 115/60; PULSE 81; RESP 18; TEMP 36.3918; O2SAT 97
[2024-06-09 16:00] VITALS: BP 127/66; PULSE 84; RESP 18; TEMP 36.114; O2SAT 97
[2024-06-09 20:00] VITALS: BP 100/61; PULSE 86; RESP 19; TEMP 36.3918; O2SAT 95
[2024-06-10] VITALS: BP 129/81; PULSE 103; RESP 19; TEMP 36.22512; O2SAT 97
[2024-06-10 04:00] VITALS: BP 124/65; PULSE 92; RESP 19; TEMP 36.3918; O2SAT 95
[2024-06-10 08:00] VITALS: BP 135/53; PULSE 82; RESP 17; TEMP 36.22512; O2SAT 97
[2024-06-10 13:25] LABS: HEMATOCRIT 39.2 % (36.0-48.0); HEMOGLOBIN 12.1 g/dL (12.0-16.0); MEAN CORPUSCULAR HGB CONC 30.8 g/dL (31.0-37.0); MEAN CORPUSCULAR VOLUME 90.8 fL (81.0-99.0); PLATELET 358 x1000/uL (130-400); RED BLOOD CELL COUNT 4.32 mill/uL (4.2-5.4); RED CELL DISTRIBUTION WIDTH 16.3 % (11.6-14.6)
[2024-06-10 13:29] LABS: CHLORIDE 115 mEq/L (98-107); POTASSIUM 3.3 mEq/L (3.5-5.1); SODIUM 145 mEq/L (136-145)
[2024-06-10 13:30] LABS: CALCIUM 8.8 mg/dL (8.7-10.4); CARBON DIOXIDE 22 mEq/L (21-32)
[2024-06-10 13:35] LABS: CREATININE 0.9 mg/dL (0.6-1.0); GLUCOSE 170 mg/dL (70-105); UREA NITROGEN BLOOD 18 mg/dL (9-23)
[2024-06-10 13:37] LABS: PREALBUMIN 6.6 mg/dl (10.0-40.0)
[2024-06-10 17:17] LABS: CLARITY URINE TURBID (CLEAR); COLOR URINE DARK YELLOW (YELLOW); GLUCOSE URINE NEGATIVE (NEGATIVE); KETONES URINE NEGATIVE (NEGATIVE); LEUKOCYTE ESTERASE URINE 1+ (NEGATIVE); NITRITE URINE POSITIVE (NEGATIVE); OCCULT BLOOD URINE 2+ (NEGATIVE); PH URINE 5.5 (4.5-8.0); PROTEIN URINE 2+ (NEGATIVE); SPECIFIC GRAVITY URINE 1.022 (1.005-1.030)
[2024-06-10 17:39] LABS: BACTERIA URINE 1+; SQUAMOUS EPITHELIAL CELL URINE 1+ /lpf (RARE/1+)
[2024-06-10] MEDS: CEFTRIAXONE 1GM/50ML 50 ML IV SCH (17:43)
[2024-06-10] MEDS: KCL 20MEQ/100ML PREMIX 100 ML IV NR (18:15)
[2024-06-10 20:00] VITALS: BP 124/60; PULSE 70; RESP 19; TEMP 36.72516; O2SAT 100
[2024-06-10] MEDS: MIRTAZAPINE 15MG TABLET PO SCH (21:51)
[2024-06-11] VITALS: BP 160/96; PULSE 103; RESP 19; TEMP 37.05852; O2SAT 95
[2024-06-11 04:00] VITALS: BP 150/79; PULSE 94; RESP 19; TEMP 36.61404; O2SAT 95
[2024-06-11 08:00] VITALS: BP 150/68; PULSE 98; RESP 18; TEMP 36.44736; O2SAT 98
[2024-06-11 10:56] LABS: CALCIUM 9.2 mg/dL (8.7-10.4); CHLORIDE 111 mEq/L (98-107); POTASSIUM 3.5 mEq/L (3.5-5.1); SODIUM 142 mEq/L (136-145)
[2024-06-11 10:57] LABS: BASOPHILS % 0.8 % (0.0-2.0); CARBON DIOXIDE 24 mEq/L (21-32); EOSINOPHILS % 1.4 % (0.0-5.0); HEMATOCRIT. 35.5 % (36.0-48.0); HEMOGLOBIN. 11.3 g/dL (12.0-16.0); LYMPHOCYTES % 7.8 % (20.0-50.0); MEAN CORPUSCULAR HEMOGLOBIN 28.4 pg (28.0-32.0); MEAN CORPUSCULAR HGB CONC 31.7 g/dL (31.0-37.0); MEAN CORPUSCULAR VOLUME 89.6 fL (81.0-99.0); MEAN PLATELET VOLUME 9.8 fl (7.4-10.4); MONOCYTES % 4.1 % (2.0-8.0); NEUTROPHILS % 85.9 % (40.0-76.0); PLATELET 394 x1000/uL (130-400); RED BLOOD CELL COUNT 3.96 mill/uL (4.2-5.4); RED CELL DISTRIBUTION WIDTH 15.8 % (11.6-14.6); WHITE BLOOD COUNT 17.5 x1000/uL (4.5-11.0)
[2024-06-11 11:02] LABS: CREATININE 0.8 mg/dL (0.6-1.0); GLUCOSE 126 mg/dL (70-105); UREA NITROGEN BLOOD 12 mg/dL (9-23)
[2024-06-11 12:00] VITALS: BP 150/68; PULSE 98; RESP 18; TEMP 36.44736; O2SAT 98
[2024-06-11 16:00] VITALS: BP 140/80; PULSE 98; RESP 18; TEMP 36.114; O2SAT 95
[2024-06-11 20:00] VITALS: BP 141/64; PULSE 108; RESP 18; TEMP 36.50292; O2SAT 96
[2024-06-12] VITALS: BP 103/63; PULSE 70; RESP 18; TEMP 38.00304; O2SAT 95
[2024-06-12 04:00] VITALS: BP 93/54; PULSE 95; RESP 18; TEMP 37.7808; O2SAT 95
[2024-06-12 08:00] VITALS: BP 100/79; PULSE 97; RESP 19; TEMP 36.61404; O2SAT 96
[2024-06-12 12:00] VITALS: BP 128/56; PULSE 98; RESP 18; TEMP 36.55848; O2SAT 96
[2024-06-12] MEDS ORDERED: LEVOFLOXACIN 250MG PREMIX 50 ML IV SCH (12:00)
[2024-06-12] MEDS: LEVOFLOXACIN 250MG TABLET PO SCH (14:26)
[2024-06-12] MEDS ORDERED: LEVOFLOXACIN 500MG PREMIX 100 ML IV SCH (15:00)
[2024-06-12 16:00] VITALS: BP 105/50; PULSE 97; RESP 19; TEMP 36.114; O2SAT 96
[2024-06-12 20:49] VITALS: BP 109/44; PULSE 98; RESP 16; TEMP 36.61404; O2SAT 98
[2024-06-12 22:32] LABS: CHLORIDE 110 mEq/L (98-107); POTASSIUM 4.1 mEq/L (3.5-5.1); SODIUM 139 mEq/L (136-145)
[2024-06-12 22:33] LABS: CALCIUM 9.1 mg/dL (8.7-10.4); CARBON DIOXIDE 20 mEq/L (21-32)
[2024-06-12 22:38] LABS: CREATININE 0.8 mg/dL (0.6-1.0); GLUCOSE 107 mg/dL (70-105); UREA NITROGEN BLOOD 17 mg/dL (9-23)
[2024-06-13] VITALS: BP 122/70; PULSE 89; RESP 16; TEMP 37.00296; O2SAT 97
[2024-06-13 01:58] LABS: BASOPHILS % 0.5 % (0.0-2.0); EOSINOPHILS % 1.3 % (0.0-5.0); HEMOGLOBIN. 10.7 g/dL (12.0-16.0); LYMPHOCYTES % 7.6 % (20.0-50.0); MEAN CORPUSCULAR HEMOGLOBIN 28.5 pg (28.0-32.0); MEAN CORPUSCULAR HGB CONC 32.5 g/dL (31.0-37.0); MEAN CORPUSCULAR VOLUME 87.9 fL (81.0-99.0); MEAN PLATELET VOLUME 9.9 fl (7.4-10.4); MONOCYTES % 4.8 % (2.0-8.0); NEUTROPHILS % 85.8 % (40.0-76.0); PLATELET 409 x1000/uL (130-400); RED BLOOD CELL COUNT 3.75 mill/uL (4.2-5.4); RED CELL DISTRIBUTION WIDTH 15.4 % (11.6-14.6); WHITE BLOOD COUNT 19.5 x1000/uL (4.5-11.0)
[2024-06-13 04:00] VITALS: PULSE 96; RESP 16; TEMP 36.72516; O2SAT 98
[2024-06-13 08:00] VITALS: BP 105/69; PULSE 101; RESP 18; TEMP 36.05844; O2SAT 96
[2024-06-13 12:00] VITALS: BP 108/62; PULSE 94; RESP 19; TEMP 36.22512; O2SAT 97
[2024-06-13 16:00] VITALS: BP 119/56; PULSE 80; RESP 18; TEMP 36.44736; O2SAT 98
[2024-06-14] VITALS: BP 163/69; PULSE 89; RESP 19; TEMP 37.11408; O2SAT 96
[2024-06-14 04:00] VITALS: BP 131/105; PULSE 98; RESP 19; TEMP 37.11408; O2SAT 98
[2024-06-14 07:41] LABS: BASOPHILS % 0.9 % (0.0-2.0); EOSINOPHILS % 1.6 % (0.0-5.0); HEMATOCRIT. 35.4 % (36.0-48.0); HEMOGLOBIN. 11.6 g/dL (12.0-16.0); LYMPHOCYTES % 9.2 % (20.0-50.0); MEAN CORPUSCULAR HGB CONC 32.9 g/dL (31.0-37.0); MEAN CORPUSCULAR VOLUME 88.1 fL (81.0-99.0); MEAN PLATELET VOLUME 9.6 fl (7.4-10.4); MONOCYTES % 4.5 % (2.0-8.0); NEUTROPHILS % 83.8 % (40.0-76.0); PLATELET 458 x1000/uL (130-400); RED BLOOD CELL COUNT 4.02 mill/uL (4.2-5.4); RED CELL DISTRIBUTION WIDTH 15.3 % (11.6-14.6); WHITE BLOOD COUNT 14.9 x1000/uL (4.5-11.0)
[2024-06-14 07:53] LABS: CHLORIDE 107 mEq/L (98-107); POTASSIUM 3.7 mEq/L (3.5-5.1); SODIUM 138 mEq/L (136-145)
[2024-06-14 07:54] LABS: CARBON DIOXIDE 25 mEq/L (21-32)
[2024-06-14 07:55] LABS: CALCIUM 9.3 mg/dL (8.7-10.4)
[2024-06-14 07:59] LABS: CREATININE 0.7 mg/dL (0.6-1.0); GLUCOSE 110 mg/dL (70-105); UREA NITROGEN BLOOD 15 mg/dL (9-23)
[2024-06-14 08:00] VITALS: BP 152/80; PULSE 107; RESP 18; TEMP 36.05844; O2SAT 99
[2024-06-14] MEDS ORDERED: LEVOFLOXACIN 750MG PREMIX 150 ML IV SCH (11:00)
[2024-06-14 12:00] VITALS: BP 148/77; PULSE 109; RESP 19; TEMP 37.00296; O2SAT 96
[2024-06-14 16:00] VITALS: BP 137/71; PULSE 109; RESP 17; TEMP 37.00296; O2SAT 94
[2024-06-14 20:00] VITALS: BP 122/61; PULSE 63; RESP 19; TEMP 36.33624; O2SAT 100
[2024-06-15] VITALS: BP 117/60; PULSE 78; RESP 20; TEMP 36.61404; O2SAT 99
[2024-06-15 04:00] VITALS: BP 142/66; PULSE 107; RESP 18; TEMP 36.6696; O2SAT 100
[2024-06-15 06:37] LABS: CHLORIDE 108 mEq/L (98-107); POTASSIUM 3.3 mEq/L (3.5-5.1); SODIUM 139 mEq/L (136-145)
[2024-06-15 06:39] LABS: CARBON DIOXIDE 24 mEq/L (21-32)
[2024-06-15 06:40] LABS: CALCIUM 8.9 mg/dL (8.7-10.4)
[2024-06-15 06:44] LABS: CREATININE 0.8 mg/dL (0.6-1.0)
[2024-06-15 06:45] LABS: GLUCOSE 114 mg/dL (70-105); UREA NITROGEN BLOOD 18 mg/dL (9-23)
[2024-06-15 06:46] LABS: ALANINE AMINOTRANSFERASE 39 IU/L (10-49); ALBUMIN 2.8 g/dL (3.2-4.8); ASPARTATE AMINOTRANSFERASE 43 IU/L (<34)
[2024-06-15 06:47] LABS: BILIRUBIN DIRECT 0.2 mg/dL (<=3.0); BILIRUBIN TOTAL 0.5 mg/dL (0.1-1.0); PROTEIN TOTAL 5.6 g/dL (6.0-8.3)
[2024-06-15 06:56] LABS: BASOPHILS % 0.6 % (0.0-2.0); LYMPHOCYTES % 8.4 % (20.0-50.0); MEAN CORPUSCULAR HEMOGLOBIN 28.9 pg (28.0-32.0); MEAN CORPUSCULAR HGB CONC 32.8 g/dL (31.0-37.0); MEAN PLATELET VOLUME 9.8 fl (7.4-10.4); MONOCYTES % 6.5 % (2.0-8.0); NEUTROPHILS % 83.5 % (40.0-76.0); PLATELET 403 x1000/uL (130-400); RED BLOOD CELL COUNT 3.33 mill/uL (4.2-5.4); RED CELL DISTRIBUTION WIDTH 15.4 % (11.6-14.6); WHITE BLOOD COUNT 17.8 x1000/uL (4.5-11.0)
[2024-06-15 08:00] VITALS: BP 156/82; PULSE 101; RESP 18; TEMP 36.78072; O2SAT 97
[2024-06-15 08:02] LABS: HEMOGLOBIN. 9.6 g/dL (12.0-16.0)
[2024-06-15 08:05] LABS: HEMATOCRIT. 29.3 % (36.0-48.0)
[2024-06-15] MEDS ORDERED: POTASSIUM CHLORIDE 20 MEQ in DEXT 5% WATER 90 ML IV ONE (11:00)
[2024-06-15 12:00] VITALS: BP 134/82; PULSE 98; RESP 19; TEMP 36.50292; O2SAT 97
[2024-06-15] MEDS: KCL 20MEQ/100ML PREMIX 100 ML IV NR (12:49)
[2024-06-15] MEDS: POTASSIUM CHLORIDE 20MEQ/PACKET PO NR (13:55)
[2024-06-15 16:00] VITALS: BP 112/44; PULSE 87; RESP 18; TEMP 36.05844; O2SAT 96
[2024-06-15 20:00] VITALS: BP 135/66; PULSE 85; RESP 17; TEMP 36.50292; O2SAT 99
[2024-06-16] VITALS (7 sets, daily range): BP systolic 106–153; BP diastolic 42–98; PULSE 74–102; RESP 16–19; TEMP 35.72508–37.28076; O2SAT 91–100
[2024-06-16 06:42] LABS: CHLORIDE 107 mEq/L (98-107); POTASSIUM 3.9 mEq/L (3.5-5.1); SODIUM 138 mEq/L (136-145)
[2024-06-16 06:43] LABS: CALCIUM 8.9 mg/dL (8.7-10.4); CARBON DIOXIDE 25 mEq/L (21-32); PROTHROMBIN TIME 11.5 sec (9.6-11.0)
[2024-06-16 06:48] LABS: CREATININE 0.9 mg/dL (0.6-1.0); GLUCOSE 113 mg/dL (70-105); IRON 28 ug/dL (50-170); UREA NITROGEN BLOOD 15 mg/dL (9-23)
[2024-06-16 06:50] LABS: BASOPHILS % 1.1 % (0.0-2.0); EOSINOPHILS % 1.6 % (0.0-5.0); LYMPHOCYTES % 10.9 % (20.0-50.0); MEAN CORPUSCULAR HEMOGLOBIN 29.5 pg (28.0-32.0); MEAN CORPUSCULAR HGB CONC 33.3 g/dL (31.0-37.0); MEAN CORPUSCULAR VOLUME 88.6 fL (81.0-99.0); MEAN PLATELET VOLUME 10.3 fl (7.4-10.4); MONOCYTES % 5.7 % (2.0-8.0); NEUTROPHILS % 80.7 % (40.0-76.0); PLATELET 389 x1000/uL (130-400); RED BLOOD CELL COUNT 3.04 mill/uL (4.2-5.4); RED CELL DISTRIBUTION WIDTH 15.5 % (11.6-14.6); TOTAL IRON BINDING CAPACITY 534 ug/dl (250-425); WHITE BLOOD COUNT 13.3 x1000/uL (4.5-11.0)
[2024-06-16 07:04] LABS: VITAMIN B12 SERUM 531 pg/mL (211-911)
[2024-06-16 07:05] LABS: FERRITIN 763 ng/mL (10-291); FOLIC ACID (FOLATE) SERUM > 20.00 ng/mL (>5.38)
[2024-06-16] MEDS: ASCORBIC ACID 500 MG TABLET PO SCH (09:07)
[2024-06-16] MEDS: FERROUS SULFATE 325MG TABLET PO SCH (09:07)
[2024-06-16] MEDS: CEFTRIAXONE 2GM/50ML 50 ML IV SCH (12:12)
[2024-06-17] VITALS: BP 163/86; PULSE 61; RESP 18; TEMP 37.16964; O2SAT 99
[2024-06-17 04:00] VITALS: BP 141/79; PULSE 72; RESP 19; TEMP 36.83628; O2SAT 100
[2024-06-17 08:00] VITALS: BP 130/70; PULSE 94; RESP 19; TEMP 36.3918; O2SAT 97
[2024-06-17 12:00] VITALS: BP 150/71; PULSE 90; RESP 18; TEMP 36.16956; O2SAT 96
[2024-06-17 16:00] VITALS: BP 130/72; PULSE 88; RESP 19; TEMP 36.33624; O2SAT 97
[2024-06-17] MEDS ORDERED: MIRT-89 PO (18:00)
[2024-06-17] MEDS ORDERED: FERR-63 PO (18:00)
[2024-06-17] MEDS ORDERED: ASCO500T20 PO (18:00)
[2024-06-17] MEDS ORDERED: IMOD PO (18:00)
[2024-06-17] MEDS ORDERED: SULF1TAB48 MT (18:00)
[2024-06-17 20:00] VITALS: BP 110/90; PULSE 76; RESP 18; TEMP 35.61396; O2SAT 100
[2024-06-17] MEDS: LOPERAMIDE HCL 2MG CAPSULE PO PRN (20:48)
[2024-06-18] VITALS: BP 117/89; PULSE 82; RESP 18; TEMP 35.94732; O2SAT 99
[2024-06-18 04:00] VITALS: BP 109/89; PULSE 78; RESP 18; TEMP 36.44736; O2SAT 98
[2024-06-18 07:54] VITALS: BP 109/89; PULSE 78; TEMP 98; O2SAT 98
[2024-06-18 08:00] VITALS: BP 113/74; PULSE 83; RESP 18; TEMP 36.05844; O2SAT 96
== END 2024-06-18 14:50 | DRG 682 ==
LOC: ER 19:52 → EDBEDREQ 06-06 00:43 → 6EST 06-06 01:17 → EDBEDREQ 06-06 01:17
PROVIDERS: ADMIT Internal Medicine; ATTEND Internal Medicine
DX: N17.9 Acute kidney failure, unspecified (principal); A41.9 Sepsis, unspecified organism; N39.0 Urinary tract infection, site not specified; K80.00 Calculus of gallbladder with acute cholecystitis without obstruction; G93.49 Other encephalopathy; R62.7 Adult failure to thrive; E11.22 Type 2 diabetes mellitus with diabetic chronic kidney disease; F03.90 Unspecified dementia, unspecified severity, without behavioral disturbance, psychotic disturbance, mood disturbance, and anxiety; N18.9 Chronic kidney disease, unspecified; I12.9 Hypertensive chronic kidney disease with stage 1 through stage 4 chronic kidney disease, or unspecified chronic kidney disease; N28.1 Cyst of kidney, acquired; E87.6 Hypokalemia; B96.20 Unspecified Escherichia coli [E. coli] as the cause of diseases classified elsewhere; E86.0 Dehydration; Z68.26 Body mass index [BMI] 26.0-26.9, adult
CPT/HCPCS: 36415; 71045; 76700; 80048; 80076; 81003; 82270; 82607; 82728; 82746; 83540; 83550; 83735; 84100; 84134; 84145; 84439; 84443; 84484; 85025; 85027; 85044; 87015; 87045; 87077; 87186; 87427; 87449; 92610; 93005; 99285; C1893; J0696; J1650; J1956; J3480